=== PATIENT | female | born 1960 | race African-American/Black ===

== ENCOUNTER → 2021-01-22 | Day surgery (SDC) | payer OTHER ==
[2021-01-21 18:27] VITALS: BMI 31.6
[~2021-01-22] MED LIST: PROPOFOL 20 ML ONE
[2021-01-22 09:58] VITALS: TEMP 98.3
[2021-01-22 10:00] VITALS: BP 118/75; PULSE 85
== END | disposition home or self-care (01) ==
LOC: FASU-ENDO 07:39
PROVIDERS: ATTEND Internal Medicine Gastroenterology
PROC: 0DB78ZX Excision of Stomach, Pylorus, Via Natural or Artificial Opening Endoscopic, Diagnostic (ICD-10-PCS; 2021-01-22)
PROC: 0DB48ZX Excision of Esophagogastric Junction, Via Natural or Artificial Opening Endoscopic, Diagnostic (ICD-10-PCS; 2021-01-22)
PROC: 0DB98ZX Excision of Duodenum, Via Natural or Artificial Opening Endoscopic, Diagnostic (ICD-10-PCS; principal; 2021-01-22 09:16)
DX: K29.50 Unspecified chronic gastritis without bleeding (principal); Z98.84 Bariatric surgery status; R10.13 Epigastric pain; R10.11 Right upper quadrant pain
CPT/HCPCS: 88305-TC; 88342-TC